=== PATIENT | female | born 1955 | race Two or more races ===

== ENCOUNTER 2020-09-10 11:25 | Inpatient (IN) | payer OTHER ==
[~2020-09-10] VITALS: Ht 162.6 cm; Wt 63.0 kg
[2020-09-10 11:36] VITALS: Ht 162.6 cm; Wt 63.0 kg
--- NOTE | 2020-09-10 11:43 | NUR ---
PT BIB [facility] ALS REPORT RECEIVED FROM [facility]. MEDIC STATES THAT TODAY IS THE PT'S DIALYSIS DAY AND PT USUALLY GOES TO [facility]. PLANS WERE TO MOVE PT TO A DIFFERENT DIALYSIS CENTER, BUT THE DIALYSIS CENTER THEY WERE PLANNING ON MOVING HER TO CAME UP COVID POSITIVE. PT'S DOCTOR DID NOT WANT PT TO GO TO THE NEW DIALYSIS CENTER BEING THAT THE [facility] IS COVID POSITIVE. PT'S DR IS TEVIN BOLES AND HE WANTED THE PT TO BE SENT TO [facility] FOR [place]. PT HAS DIALYSIS PORT AT [facility], BS 362, BP 162/74, 99% ON 3L, 14 RESP ON SCENE. MEDIC STATES THAT PT RECEIVED INSULIN 6U 0630, 38U 0900 NPH. MEDIC ALSO MENTIONED PT'S PUREE DIET. PT STATES THAT SHE HAS 10/10 PAIN FROM A SORE ON HER BUTTOCKS. PT ON ALL MONITORS, NAD NOTED, BREATHING E/U, CALL LIGHT IN REACH
[2020-09-10 12:14] LABS: CALCIUM 8.3 mg/dL (8.5-10.1); CARBON DIOXIDE 26.5 mmol/L (21-32); CREATININE SERUM 3.4 mg/dL (0.6-1.0); MAGNESIUM 1.8 mg/dL (1.8-2.4); POTASSIUM SERUM 4.1 mmol/L (3.5-5.1)
--- NOTE | 2020-09-10 12:20 | NUR ---
PT AAOX4, FULL MONITORS IN PLACE, CALL LIGHT IN REACH.
[2020-09-10 12:24] LABS: BASOPHIL % 0.2 % (0-2); PLATELET COUNT 234 x10^3mcL (130-400); RED CELL DISTRIBUTION WIDTH 17.4 % (11.5-14.5)
--- NOTE | 2020-09-10 14:21 | NUR ---
PT ASLEEP IN BED, EASY TO AROUSE AWAKE, BREATHING E/U, AND FULL MONITORS IN PLACE
--- NOTE | 2020-09-10 15:21 | NUR ---
PT ASLEEP ON GURNEY, FULL MONITORS IN PLACE, VSS, BREATHING E/U, CALL LIGHT IN REACH
[2020-09-10] MEDS ORDERED: AMIODARONE200 MG PO (16:24)
[2020-09-10] MEDS ORDERED: ARGINAID POWDE1 EACH PO (16:25)
[2020-09-10] MEDS ORDERED: ASPIR 8181 MG GT (16:26)
[2020-09-10] MEDS ORDERED: ATORVASTATIN CA20 M1 GT (16:26)
[2020-09-10] MEDS ORDERED: CARVEDILOL12.5 M1 GT (16:27)
[2020-09-10] MEDS ORDERED: COMBIVENT RESPI1 SP1 IH (16:29)
[2020-09-10] MEDS ORDERED: ARANESP0.025 MG/M IJ (16:30)
[2020-09-10] MEDS ORDERED: COLACE100 MG GT (16:31)
[2020-09-10] MEDS ORDERED: FLUOROMETHOLONE5 M1 OU (16:32)
[2020-09-10] MEDS ORDERED: HUM7525 SQ (16:33)
--- NOTE | 2020-09-10 16:43 | NUR ---
REPORT GIVEN TO [facility] IN [facility] EXT. [id number] ROOM [id number]
--- NOTE | 2020-09-10 16:48 | NUR ---
SPOKE WITH [facility], NURSE TAKING CARE OF PT - INFORMED HER THAT PT IS BEING ADMITTED TO [place] FOR DIALYSIS.
[2020-09-10 17:28] VITALS: BP 114/67
--- NOTE | 2020-09-10 17:48 | NUR ---
RECEIVED PT FROM ER, PT ADMIT FOR DIALYSIS, PT IS A/O X4, VERBAL RESPONSIVE. BLIND BOTH EYES. LUNG SOUND CLEAR BILATERAL, NO COUGH, NO SOB. PT IS ON 2L/MIN O2 VIA NC. PO2 99%, PT DENY ANY CHEST PAIN OR DISCOMFORT, BOWEL SOUND PRESENT ALL 4 QUADRANTS, NO DISTENTION, NO TENDER. THERE IS G TUBE IN PLACE, PEDAL PULSE PRESENT BOTH FEET, NO EDEMA, THERE ARE MULITPLE OPEN ULCER AT COCCYX AREA. APPLIED NEW DRESSING. KEVIN CATH AT RIGHT UPPER CHEST, IV AT RIGHT WRIST, NO LEAKING, NO INFILTRATION. ALL ADLS ASSIST, ALL NEED MET, CALL LIGHT IN REACH, WILL CONTINUE TO MONITOR.
--- NOTE | 2020-09-10 18:06 | NUR ---
PT AWAKE, RESTING QUIETLY IN BED, BEING ADMITTED FOR DIALYSIS.PT MISSED HD TODAY AND HENCE SENT TO ED BY HER BUY BOAT OPERATOR.CARE ASSURED.NEEDS ARE BEING @ THIS TIME.UPDATE PROVIDED TO PT'S DAUGHTER BY ADMITING NURSE.B/P STABLE. AFEBRILE.BED IN LOW SAFE POSITION.CALL LIGHT WITHIN HER REACH.
[2020-09-10 21:11] VITALS: BP 122/68
--- NOTE | 2020-09-10 21:36 | NUR ---
HEPARIN VIAL IS BROKEN WHEN I REMOVED FROM [facility], WITNESS IS JANENE, INFORMED CHARGE NURSE - JHONATAN. PATIENT RESTING IN BED, AWAKE, ALERT X3 , NO DISTRESS NOTED, BM X1 , CLEANED BY APPOINTMENT COORDINATOR, MULTIPLE PRESSURE AT COCCYX AREA , GOOD SKIN CARE GIVEN , APPLIED OPTIFORM FOR NOW, WOUND CARE CONSULT TOMORROW.
--- NOTE | 2020-09-10 22:30 | NUR ---
PATIENT COMPLAIN OF BACK PAIN 5/10, NORCO 1 TAB GIVEN AND AMBIEN 1 TAB GIVEN FOR INSOMNIA, NO PAIN AT THIS TIME
[2020-09-11 05:07] VITALS: BP 100/57
--- NOTE | 2020-09-11 06:32 | NUR ---
BM X1 GOOD SKIN CARE GIVEN , APPLIED OPTIFORM TO COCCYX AREA, WAITING FOR WOUND CARE NURSE TO SEE .
[2020-09-11 06:47] LABS: CARBON DIOXIDE 31.1 mmol/L (21-32); CREATININE SERUM 3.8 mg/dL (0.6-1.0); MAGNESIUM 1.8 mg/dL (1.8-2.4); PHOSPHOROUS 7.1 mg/dL (2.5-4.9); POTASSIUM SERUM 3.7 mmol/L (3.5-5.1)
[2020-09-11 07:29] LABS: BASOPHIL % 0.5 % (0-2); PLATELET COUNT 213 x10^3mcL (130-400)
[2020-09-11 08:20] VITALS: BP 100/46
[2020-09-11 12:01] VITALS: BP 117/63
--- NOTE | 2020-09-11 14:28 | NUR ---
DAY SHIFT Patient received awake and alert, able to make needs known in [place] [facility] [place]. No complaints of pain. HGB 7.[address] Leo - ordered x2 units of PRBC. Consent obtained from patient. Daughter also updated.
[2020-09-11 18:11] VITALS: BP 133/72
[2020-09-11 19:58] VITALS: BP 132/74
--- NOTE | 2020-09-11 20:00 | NUR ---
HEMODIALYSIS ONGOING, HD NURSE AT BEDSIDE AND PATIENT IS TOLERATED WELL.
--- NOTE | 2020-09-11 21:44 | NUR ---
HD DONE BY HD NURSE WITH 2.5 LITER OUT, PATIENT IS TOLERATED WELL, NO DISTRESS NO C/O PAIN AT THIS TIME. HD NURSE CHANGED DRESSING TO RIGHT CHEST KEVIN CATH, CALL LIGHT WITHIN REACH.
--- NOTE | 2020-09-12 00:30 | NUR ---
BM X1 YOUTH CARE PROFESSIONAL CHANGED DIAPER, GOOD SKIN CARE GIVEN , CHANGED DRESSING AT COCCYX ARER.
[2020-09-12 04:58] VITALS: BP 140/74
[2020-09-12 06:46] LABS: BASOPHIL % 0.3 % (0-2); PLATELET COUNT 230 x10^3mcL (130-400)
[2020-09-12 07:06] LABS: CALCIUM 8.3 mg/dL (8.5-10.1); CARBON DIOXIDE 32.1 mmol/L (21-32); CREATININE SERUM 2.5 mg/dL (0.6-1.0); MAGNESIUM 1.6 mg/dL (1.8-2.4); PHOSPHOROUS 4.1 mg/dL (2.5-4.9); POTASSIUM SERUM 3.1 mmol/L (3.5-5.1)
[2020-09-12 07:22] LABS: RED CELL DISTRIBUTION WIDTH 16.4 % (11.5-14.5)
--- NOTE | 2020-09-12 07:30 | NUR ---
PT RECEIVED IN BED ALERT AND ORIENTED*4.NEPALI SPEAKING BUT ABLE TO COMPREHEND SIMPLE SAMMARINESE.PT IS LEGALLY BLIND BOTH EYES,TOTAL ASSIST IS BEING RENDERED.CARE ASSURED.NO ACUTE DISTRESS NOTED.HYPERACTIVE BOWELS.SKIN WARMA AND DRY WITH WOUNDS ON COCCYX AND SCAB ON LEFT KNEE.HD PT, S/P HD YESTARDAY WITH 2.5L REMOVED, VIA RIGHT CHEST KEVIN HD CATH.VSS.AFEBRILE.CALL LIGHT WITHIN REACH.BED IN LOW SAFE POSITION.
[2020-09-12 07:51] VITALS: BP 141/74
[2020-09-12 12:18] VITALS: BP 114/63
--- NOTE | 2020-09-12 14:06 | NUR ---
Initial Nutrition Assessment Jacqueline Corbett P. 65 F Dx: Missed Dialysis PMHx: ESRD, cataract, HTN, DM2 PSHx: Status post sternotomy Labs: (09/10) RBC 2.29L, H/H 7.0/21L, NA 129L, BUN 49H, CR 3.8H, CA 8.0L, PHOS 7.1H Meds: Colace, Heparin, Ambien, Larose Diet: Renal Diet PO intake since admission: 09/10 D: 10%, 09/11 B: 30%, 09/12 B:0% Ht: 162.56cm/ 5'3" Wt: 63.05kg/ 139# BMI: 23.9 Bed scale: 141# IBW: 115# / 52.3kg %IBW: 121% UBW: not able to ask Age: 65 Food Allergies: no known allergies Skin condition: coccyx pressure ulcer (+) MRSA CX Marlo: 10 Edema: none Last BM: 09/10 Per H&P: Patient is a very poor historian. I tried to call patient's daughter several times but her phone kept coming busy. Reportedly this is a 65-year-old female who has history of ESRD and has been on maintenance hemodialysis 3 times a week on a Saturday, , Saturday schedule using right IJ tunneled catheter. She normally goes to [facility] dialysis central. RD Note (09/12): Per medical/ bed rounding tried to reach daughter not responding, poor historian. She is being monitored by nephrology, planned for HD. (+) for MRSA cx and Pressure Ulcer not staged reported in Shift reassessment by RN. Pt flowsheet for PO intake is poor 10-30% average last 2 days. Pt also mentions she is not interested in food, unable to ask about wt or gi function. On a Renal Diet, ONS will be recommended to supplement poor appetite. Will monitor POC. Problem with: N/V/D/C: none Problems with: Chewing: Swallowing: none Current appetite: poor Recent wt change: unknown %wt change: Vitamin/Supplement use: unknown Special diet at home: Renal Physical activity: unknown Nutrition education given (specify specific nutrition education and handout given): no Food-drug interactions? Education given? no Estimated Nutritional Needs Based on [place] (52.3kg) body weight Energy: 1569 - 1830 kcal/day (30-35 kcal/kg) ESRD on HD (>65yo) Protein: 63 - 73 g/day (1.2-1.4 g/kg) HD Fluid: 1000 mL/day (1L + urine output) Nutrition Diagnosis: Increased nutrient needs RT infection AEB mrsa (+) cultures Inadequate oral intake RT chronic renal dysfunction AEB poor po intake < 25% po average Intervention 1. Continue with a Renal Diet as tolerated, possible liberalization on F.U. 2. Add Nepro with Carb Steady 2 days per day with breakfast and Dinner to provide additional (850kcals/ 38gm protein) Monitor/Evaluate Goal: PO intake at least 75% of estimated needs Monitor: PO intake, ONS tolerance, Labs, GI function F/U in 2-3 days as high risk 09/14-
[2020-09-12 15:27] VITALS: BP 124/69
[2020-09-12 16:36] VITALS: BP 124/69
[2020-09-12 17:34] VITALS: BP 138/73
--- NOTE | 2020-09-12 19:00 | NUR ---
PT RESTING QUIETLY IN BED @ THIS TIME.D/C TO [facility] IN PROGRESS.REPORT GIVEN TO STAFF NURSE @ [facility].PT AND HER DAUGHTER AGREES TO D/C BACK TO [facility].PICK-UP TIME ARRANGED WITH [facility] FOR 18:45PM.PT WAITING FOR PICK-UP @ THIS TIME.
--- NOTE | 2020-09-13 08:10 | NUR ---
WOUND CARE CONSULT NOT DONE, PT. DISCHARGED.
== END 2020-09-12 19:30 | DRG 194 ==
LOC: ED 11:25 → MU 15:28
PROVIDERS: Emergency Medicine; ADMIT Hospitalist; ATTEND Hospitalist
PROC: 30233N1 Transfusion of Nonautologous Red Blood Cells into Peripheral Vein, Percutaneous Approach (ICD-10-PCS; principal; 2020-09-11)
DX: I13.2 Hypertensive heart and chronic kidney disease with heart failure and with stage 5 chronic kidney disease, or end stage renal disease (principal); E11.22 Type 2 diabetes mellitus with diabetic chronic kidney disease; E87.8 Other disorders of electrolyte and fluid balance, not elsewhere classified; N18.6 End stage renal disease; E87.1 Hypo-osmolality and hyponatremia; H26.9 Unspecified cataract; D63.1 Anemia in chronic kidney disease; H54.7 Unspecified visual loss; Z20.828 Contact with and (suspected) exposure to other viral communicable diseases; Z99.2 Dependence on renal dialysis; Z88.8 Allergy status to other drugs, medicaments and biological substances; I25.2 Old myocardial infarction; Z79.82 Long term (current) use of aspirin; Z79.899 Other long term (current) drug therapy; Z79.84 Long term (current) use of oral hypoglycemic drugs
CPT/HCPCS: 83880; G0378; J0885-EC; J1644; J7030; J7050; P9016; Q0163